=== PATIENT | male | born 1970 | race Caucasian/White ===

== ENCOUNTER 2018-04-23 22:54 | Emergency (ER) | payer BC ==
[~2018-04-23] VITALS: Ht 170.2 cm; Wt 63.2 kg
[2018-04-24 01:14] LABS: APPEARANCE CLEAR ((CLEAR)); BILIRUBIN NEGATIVE; BLOOD NEGATIVE; COLOR COLORLESS ((YELLOW)); GLUCOSE (STRIP) NEGATIVE; KETONES NEGATIVE; LEUKOCYTES NEGATIVE; NITRITE NEGATIVE; PROTEIN (STRIP) NEGATIVE; SPECIFIC GRAVITY 1.003 (1.000-1.030); UCUL ADDED? NO; UROBILINOGEN 0.2 MG/DL (0.2-1.0)
[2018-04-24 01:19] LABS: HEMATOCRIT 45.3 % (38.0-50.0); HEMOGLOBIN 16.2 G/DL (12.5-16.6); MCH 34.3 PG (29.0-34.0); MCHC 35.8 G/DL (30.0-36.0); PLATELET COUNT 251 K/uL (156-360); RBC DIS.WIDTH-CV 11.9 % (11.8-14.6); RBC DIS.WIDTH-SD 41.8 % (39-53); RED BLOOD COUNT 4.72 M/uL (4.00-5.50); WHITE BLOOD COUNT 13.8 K/uL (4.1-10.2)
[2018-04-24 01:24] LABS: AMPHETAMINE NEGATIVE (500 ng/mL); BARBITURATES NEGATIVE (200 ng/mL); BENZODIAZEPINES NEGATIVE (150 ng/mL); COCAINE NEGATIVE (150 ng/mL); METHADONE NEGATIVE (200 ng/mL); METHAMPHETAMINE NEGATIVE (500 ng/mL); OPIATES (MORPHINE) NEGATIVE (100 ng/mL); OXYCODONE NEGATIVE (100 ng/mL); PHENCYCLIDINE NEGATIVE (25 ng/mL); THC CANNABINOIDS NEGATIVE (50 ng/mL); TRICYCLIC ANTIDEPRESSANTS NEGATIVE (300 ng/mL)
[2018-04-24 01:25] LABS: BUPRENORPHINE NEGATIVE (10 ng/mL); PROPOXYPHENE NEGATIVE (300 ng/mL)
[2018-04-24 01:28] LABS: ALBUMIN 4.6 g/dL (3.2-4.8); CHLORIDE 106 mEq/L (99-109); POTASSIUM 4.1 mEq/L (3.7-5.4); SODIUM 141 mEq/L (136-147)
[2018-04-24 01:31] LABS: GLUCOSE 93 mg/dL (70-99); TOTAL PROTEIN 7.5 g/dL (6.4-8.3)
[2018-04-24 01:32] LABS: TOTAL BILIRUBIN 0.2 mg/dL (0.0-1.0)
[2018-04-24 01:33] LABS: SERUM ETHYL ALCOHOL 235 mg/dL
[2018-04-24 01:34] LABS: ALKALINE PHOSPHATASE 56 IU/L (3-129); CREATININE 0.8 mg/dL (0.6-1.3); GFR ESTIMATE (CALCULATED) > 59 mL/min/ (58.99-99999)
[2018-04-24 01:35] LABS: UREA NITROGEN (BUN) 6 mg/dL (9-23)
[2018-04-24 01:36] LABS: AST (GOT) 21 IU/L (2-34)
[2018-04-24 01:37] LABS: ALT (GPT) 21 IU/L (3-49)
[2018-04-24] MEDS ORDERED: LIBRIUM25 MG PO (08:20)
[2018-04-24 08:51] VITALS: BP 128/74
== END 2018-04-24 08:52 | disposition home or self-care (01) ==
LOC: EME 22:54
PROVIDERS: Emergency Medicine
DX: F10.229 Alcohol dependence with intoxication, unspecified (principal); F32.9 Major depressive disorder, single episode, unspecified; Y90.7 Blood alcohol level of 200-239 mg/100 ml; F17.200 Nicotine dependence, unspecified, uncomplicated
CPT/HCPCS: 80053; 81003; 85027; 90839; 99281; 99283; G0480

== ENCOUNTER 2018-07-07 05:36 | Day surgery (SDC) | payer BC ==
[~2018-07-07] VITALS: Ht 175.3 cm; Wt 65.8 kg
[~2018-07-07 05:36] MED LIST: ADVIL200 MG PO; FISH OIL 1,0001 EAC7 PO; FLONASE ALLERG9.9 ML BOTH NARES; LIBRIUM25 MG PO; LO-DOSE ASPIRIN81 M2 PO; MULTIPLE VITAM1 EACH PO; NORVASC5 MG PO; TOPROL XL50 MG PO; VITAMIN D5000 UNI1 PO
[2018-07-07 06:44] VITALS: BP 146/95
[2018-07-07] MEDS ORDERED: NORCO 5/3251 TABLET PO (08:39)
[2018-07-07 09:45] VITALS: BP 135/86
[2018-07-07 10:45] VITALS: BP 110/80
[2018-07-07 11:15] VITALS: BP 125/89
== END 2018-07-07 11:25 | disposition home or self-care (01) ==
LOC: SDC 05:36
PROC: 0VBF0ZZ Excision of Right Spermatic Cord, Open Approach (ICD-10-PCS; principal; 2018-07-07)
PROC: 0YU50JZ Supplement Right Inguinal Region with Synthetic Substitute, Open Approach (ICD-10-PCS; principal; 2018-07-07)
DX: K40.90 Unilateral inguinal hernia, without obstruction or gangrene, not specified as recurrent (principal); D17.6 Benign lipomatous neoplasm of spermatic cord; I10 Essential (primary) hypertension; F17.200 Nicotine dependence, unspecified, uncomplicated
CPT/HCPCS: 88304; C1781; J0131; J0330; J0690; J1100; J1170; J2250; J2405; J3010; J7643